=== PATIENT | male | born 1980 | race Caucasian/White ===

== ENCOUNTER 2016-10-19 15:14 | Emergency (ER) | payer SELFPAY ==
--- OUTSIDE RECORDS SUMMARY | 2016-10-19 15:28 | XMS REPORT | Continuity of Care Document ---
:1980 Author Organization [facility] ([facility]) [place] [address] Phone [phone] Care Team Providers Name Role Phone Unavailable Primary Care Provider Unavailable Source Comments This disclosure is being made pursuant to the Care Everywhere program, applicable federal and state laws, and may not contain all informaitonavailable regarding this patient.[facility] ([facility]) Active Allergies and Adverse Reactions Not on File Current Medications Not on file Active Problems Not on file Social History Tobacco Use Types Packs/Day Years Used Date Never Assessed Plan of Care Health Maintenance Due Date Last Done Comments Hepatitis B Vaccine (1 of 3 - Primary Series) 1978 Tdap Vaccine 1989 Lipid Disorder Screening 1996 MMR Vaccine 1996 Td Vaccine 1996 Influenza Vaccine: Seasonal (#1) 12/07/2015 Results from Last 3 Months Not on file
--- OUTSIDE RECORDS SUMMARY | 2016-10-19 15:28 | XMS REPORT | Continuity of Care Document ---
:1980 Author Organization [facility] [place] [address] Care Team Providers Name Role Phone Unavailable Primary Care Provider Unavailable Source Comments This disclosure is being made pursuant to the [facility] program and maynot contain all information available regarding this patient.[facility] Active Allergies and Adverse Reactions Not on File Current Medications Be aware that medications may not be up to date as of this document. Alwaysverify current medications with the patient. Not on file Active Problems Not on file Social History Tobacco Use Types Packs/Day Years Used Date Never Assessed Plan of Care Health Maintenance Due Date Last Done Comments Retired-Pertussis Vaccine Adult 1997 Retired-Tetanus Vaccine Adult 1997 Retired-INFLUENZA VACCINE 01/06/2015 Results from Last 3 Months Not on file
[2016-10-19] MEDS ORDERED: ALBUTEROL SULFATE/IPRATROPIUM 3 ML NEBU IH ONE ×2 (15:30→15:31)
--- NOTE | 2016-10-19 15:43 | ERNOTE ---
Date of Service: 10/19/16 Time Seen by Provider: 10/19/16 15:16 Stated Complaint: WHEEZING Presenting Symptoms:: cough Source: patient Exam Limitations: no limitations Immunizations: IMMUNIZATION HX Immunizations Up to Date Yes History of Influenza Vaccine No Hx Pneumococcal Vaccination Yes Allergies/Adverse Reactions: Allergies No Known Allergies Allergy (Verified 10/19/16 15:24) Home Medications: HOME MEDICATIONS Albuterol Sulfate [Albuterol Sulfate 2.5 MG/0.5ML] 1 vial IH Q4H PRN 10/19/16 [ Last Taken Unknown] Albuterol Sulfate [Proair Hfa] 2 puff IH Q4H PRN #1 inhaler 10/19/16 [Last Taken Unknown] Azithromycin [Zithromax] 500 mg PO NOW #6 tab 10/19/16 [Last Taken Unknown] predniSONE [Prednisone] 50 mg PO DAILY #5 tablet 10/19/16 [Last Taken Unknown] - History of Present Ilness Narrative: Patient presents to the ED requesting a breathing treatment. he relates he has a Hx of asthma. She has been coughing and more SOB for the last 6 days. he feels like his inhaler is not working. He states his albuterol inhaler is now almost out. he does not have a doctor to follow-up with here. No fever. No CP. He relates URI Sx with cough and now wheezing. He has not been admitted for his asthma as an adult. No calf pain or leg swelling. Timing: constant Severity: moderate Frequency/Possible Cause: Reports: occasional episodes Modifying Factors - Improves: Reports: albuterol Associated Symptoms: Reports: cough, nasal congestion. Denies: chest pain/ soreness, earache, fever/chills Prior Treatment: Denies: recently seen Review of Systems - Review of Systems Constitutional: Absent: fever Cardiology: Absent: chest pain Gastrointestinal/Abdominal: Absent: abdominal pain Neurological: Absent: weakness - Patient's Past Medical History Patient History - Medical: No pertinent hx Patient History - Cardiac/Respiratory: Asthma Patient History - Cancer: No Hx of Cancer Patient History - Surgical Procedures: T & A Patient History - Other: None - Social History Living Situations: home Abuse History: No History of abuse Psych History: No pertinent hx Smoking Status: Never smoker Do you dip or chew tobacco: No Alcohol Use: none Drug Use: none - Immunizations Immunizations Up to Date: Yes Hx Pneumococcal Vaccination: Yes History of Influenza Vaccine: No Physical Exam - Physical Exam General Appearance: Present: alert, no apparent distress, other - On his phone, no distress. Speaking in full sentences Eye Exam: Normal inspection: bilateral, PERRL: bilateral Ears, Nose, Throat: Present: nasal congestion, normal pharynx. Absent: pharyngeal erythema, pharyngeal swelling, tonsillar exudate Neck: Present: normal inspection Respiratory: Present: no respiratory distress, no accessory muscle use, other - few faint wheezes in the bases. Cardiovascular/Chest: Present: regular rate, rhythm Gastrointestinal/Abdominal: Present: normal bowel sounds, nontender, soft Back Exam: Present: normal range of motion Extremity Exam: Present: normal inspection, no edema Neurological Exam: Present: alert, normal mood/affect, no motor/sensory deficits Skin Exam: Absent: skin rash ED Progress - Vital Signs Patient's Vital Signs:: I have reviewed the patient's vital signs. Vital Signs: Vital Signs 10/19/16 15:16 Temperature 37.1 C Pulse Rate 78 Respiratory 20 Rate Blood Pressure 126/91 O2 Sat by Pulse 96 Oximetry - X-Ray X-Ray #1 X-Ray: chest Interpretation: Interp. by me X-ray Comments: NAPP. I reviewed the CXR report. - Progress/Reassessment Chief Complaint: Upper Respiratory Symptoms Progress Note-Subjective: 10/19/16 16:19 No wheezing on re-check. No respiratory distress. I feel he appropriate for d/ c. As he has no PCP I am going to place him on ABx, steroids and inhaler. I discussed warning signs and reasons to return as well as the need for close f/u. Departure - Departure Clinical Impression: Bronchitis Disposition: Home self-care Condition: Stable Instructions: Acute Bronchitis, [id number] Additional Instructions: Rest. Fluids. Medications as directed. Return for trouble breathing or if your condition worsens or changes in any way. Prescriptions: Albuterol Sulfate [Proair Hfa] 2 puff IH Q4H PRN #1 inhaler PRN Reason: Shortness Of Breath Azithromycin [Zithromax] 500 mg PO NOW #6 tab predniSONE [Prednisone] 50 mg PO DAILY #5 tablet
[2016-10-19 16:20] VITALS: BP 129/80
== END 2016-10-19 16:37 | disposition home or self-care (01) ==
LOC: ER 15:14
DX: J20.9 Acute bronchitis, unspecified (principal)